=== PATIENT | female | born 1995 | race Caucasian/White ===

== ENCOUNTER → 2018-09-28 | Outpatient (CLI) | payer OTHER ==
--- NOTE | 2018-09-28 13:21 | Pulmonary Function Test ---
Pulmonary Function Test Date of Procedure:: 09/28/18 INDICATION:: dypsnea Referring Provider: Dr.James Kendrick Loan Operations Manager: Genie Todd PHARMACOLOGIST,HOME VISIT FIELD CARE MANAGER - Report Spirometry: FVC 3.52 L 100% postbronchodilator 3.67 L 105% FEV1 3.00 L 99% postbronchodilator 3.17 L 104% FEV1/FVC % 85 postbronchodilator 86 predicted 87 FEF 25-75% 3.05 L 83% postbronchodilator 3.23 L 88% Impression: Normal spirometry
== END ==
LOC: RT 07:17
PROVIDERS: ATTEND Family Medicine
DX: J45.40 Moderate persistent asthma, uncomplicated (principal)
CPT/HCPCS: 94060